=== PATIENT | female | born 1950 | race Caucasian/White ===

== ENCOUNTER 2017-12-08 20:26 | Emergency (ER) | payer MEDICARE, OTHER ==
--- NOTE | 2017-12-08 22:08 | EDM.PDOC ---
ED HPI GENERAL MEDICAL PROBLEM - General Chief Complaint: Upper Extremity Injury/Pain Stated Complaint: LEFT ARM INFECTION Time Seen by Provider: 12/08/17 20:44 Source of Information: Reports: Patient, Family () History Limitations: Reports: No Limitations - History of Present Illness INITIAL COMMENTS - FREE TEXT/NARRATIVE: left arm pain; Mrs. Gregory reports about 2 days ago, noticed an ache in the arm, more in the humerus area, today noticed red streaking going from mid forearm to the AC extending up the Humerus. denies fever and chills. denies any injury or insect or tick bites to the arm. no history of MRSA. 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 Onset: Gradual Onset Date: 12/06/17 Duration: Day(s): (two), Getting Worse Location: Reports: Upper Extremity, Left Quality: Reports: Ache, Pressure Severity: Moderate Improves with: Reports: None Worsens with: Reports: None Associated Symptoms: Denies: Fever/Chills Treatments LAPPER: Reports: Other (see below) Other Treatments LAPPER: none - Related Data Allergies Allergy/AdvReac Type Severity Reaction Status Date / Time amoxicillin [From Augmentin] Allergy Rash Verified 12/08/17 21:06 clavulanic acid Allergy Rash Verified 12/08/17 21:06 [From Augmentin] clindamycin Allergy Rash Verified 12/08/17 21:06 Penicillins Allergy Rash Verified 12/08/17 21:06 procainamide [From Pronestyl] Allergy Rash Verified 12/08/17 21:06 quinidine Allergy Rash Verified 12/08/17 21:06 Sulfa (Sulfonamide Allergy Rash Verified 12/08/17 21:06 Antibiotics) Home Meds: Home Meds Atenolol [Tenormin] 25 mg PO WITHBREAKFAST 12/08/17 [History] Atenolol [Tenormin] 50 mg PO WITHDINNER 12/08/17 [History] Azithromycin [Zithromax] 500 mg PO ASDIRECTED 12/08/17 [History] Calcium Carb & Citrate/Vit D3 [Calcium + D3 ER Tablet] 1 each PO DAILY 12/08/17 [History] Digoxin [Lanoxin] 125 mcg PO ASDIRECTED 12/08/17 [History] Digoxin [Lanoxin] 250 mcg PO ASDIRECTED 12/08/17 [History] Furosemide [Lasix] 40 mg PO DAILY 12/08/17 [History] Multivitamin W-Minerals/Lutein [A Thru Z Advanced Formula Tab] 1 each PO DAILY 12/08/17 [History] Simvastatin [Zocor] 20 mg PO BEDTIME 12/08/17 [History] Warfarin Sodium [Coumadin] 3 mg PO DAILY 12/08/17 [History] Past Medical History HEENT History: Reports: Impaired Vision Cardiovascular History: Reports: Afib, Heart Valve Replacement, Pacemaker, Other (See Below) Other Cardiovascular History: 3rd degree heart block, pacemaker Hematologic History: Reports: Anticoagulation Therapy Oncologic (Cancer) History: Reports: Breast - Infectious Disease History Infectious Disease History: Reports: Chicken Pox - Past Surgical History Cardiovascular Surgical History: Reports: Pacer, Other (See Below) Other Cardiovascular Surgeries/Procedures: St Leonel valve GI Surgical History: Reports: Appendectomy Female Surgical History: Reports: Hysterectomy Oncologic Surgical History: Reports: Mastectomy Social & Family History - Family History Family Medical History: Unobtainable - Tobacco Use Smoking Status *Q: Never Smoker Second Hand Smoke Exposure: No - Caffeine Use Caffeine Use: Reports: Coffee - Recreational Drug Use Recreational Drug Use: No - Living Situation & Occupation Living situation: Reports: 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 Leonel Heart Valves) Musculoskeletal: Reports: Arm Pain (left upper arm and forearm painful x 2 days. ) Skin: Reports: Erythema (follow along veins of left forearm extending into upper arm. warm, red, tender to touch) Neurological: Reports: No Symptoms Psychiatric: Reports: No Symptoms ED EXAM, GENERAL - Physical Exam Exam: See Below Exam Limited By: No Limitations General Appearance: Alert, WD/WN, No Apparent Distress Head: Atraumatic, Normocephalic Neck: Normal Inspection, Supple, Non-Tender, Full Range of Motion Respiratory/Chest: No Respiratory Distress, Lungs Clear, Normal Breath Sounds, No Accessory Muscle Use, Chest Non-Tender Cardiovascular: Normal Peripheral Pulses, Regular Rate, Rhythm, No Edema, No Gallop Peripheral Pulses: 2+: Radial (L), Radial (R) GI/Abdominal: Soft, Non-Tender Extremities: Normal Range of Motion, Arm Pain (left upper arm and forearm), Increased Warmth (increase redness and pain to left forearm and humerus), Redness (left forearm and upper arm) Neurological: No Motor/Sensory Deficits Psychiatric: Normal Affect Skin Exam: Warm, Dry, Intact, Erythema (left forearm and upper arm. red streaking along veins into AC, + pain, redness) Lymphatic: No Adenopathy Course - Vital Signs Last Recorded V/S: Last Vital Signs Temp 35.4 C 12/08/17 20:44 Pulse 65 12/08/17 21:42 Resp 16 12/08/17 21:09 BP 149/83 H 12/08/17 21:42 Pulse Ox 91 L 12/08/17 21:42 - Orders/Labs/Meds Labs: Laboratory Tests 12/08/17 12/08/17 Range/Units 21:16 21:16 WBC 5.7 (4.5-11.0) K/uL RBC 4.77 (3.30-5.50) M/uL Hgb 14.2 (12.0-15.0) g/dL Hct 42.4 (36.0-48.0) % MCV 89 (80-98) fL MCH 30 (27-31) pg MCHC 34 (32-36) % Plt Count 197 (150-400) K/uL Neut % (Auto) 60 (36-66) % Lymph % (Auto) 26 (24-44) % Addison % (Auto) 10 H (2-6) % Eos % (Auto) 3 (2-4) % Baso % (Auto) 1 (0-1) % Sodium 140 (140-148) mmol/L Potassium 3.8 (3.6-5.2) mmol/L Chloride 103 (100-108) mmol/L Carbon Dioxide 31 (21-32) mmol/L Anion Gap 5.8 (5.0-14.0) mmol/L BUN 20 H (7-18) mg/dL Creatinine 1.2 H (0.6-1.0) mg/dL Est Cr Clr Drug Dosing 48.19 mL/min Estimated GFR (MDRD) 45 L (>60) Glucose 116 H (74-106) mg/dL Calcium 9.1 (8.5-10.1) mg/dL - Re-Assessments/Exams Free Text/Narrative Re-Assessment/Exam: labs: CBC normal, BMP normal Na+, K+, CL-, BUN, anion gap., elevated CR 1.2, consulted with Tele-pharmacy for antibiotic and Coumadin interaction will use Zithromax for cellulitis. advised if not improving in the next 24 hours will need to return to ER for recheck. and Mrs. Gregory agree with plan of care Departure - Departure Time of Disposition: 22:31 Disposition: Home, Self-Care 01 Condition: Good Clinical Impression: Cellulitis and abscess of upper arm and forearm - Discharge Information *PRESCRIPTION DRUG MONITORING PROGRAM REVIEWED*: Not Applicable *COPY OF PRESCRIPTION DRUG MONITORING REPORT IN PATIENT YAS: Not Applicable Instructions: Cellulitis, Adult, [id number] Referrals: PCP,None [Primary Care Provider] - Forms: ED Department Discharge Care Plan Goals: Cellulitis of left upper arm and forearm -start tonight, Zithromax 2 tabs now, then one tablet daily -take over the counter Tylenol as directed for pain -may apply warm moist heat to the area of redness for 20 mins every 2 to 4 hours while awake for next 3 days -will need to recheck INR level in 3 days -follow up with Primary Care in 3 days for recheck Advise to return to ER if has any increase pain, fever, chills, nausea, vomiting , rash, increased in redness or not improved - Problem List & Annotations (1) Cellulitis and abscess of upper arm and forearm SNOMED Code(s): 830952726 Code(s): WCO7025 - Status: Acute Priority: High - Problem List Review Problem List Initiated/Reviewed/Updated: Yes - Assessment/Plan Assessment:: Cellulitis of left upper arm and forearm -start tonight, Zithromax 2 tabs now, then one tablet daily -take over the counter Tylenol as directed for pain -may apply warm moist heat to the area of redness for 20 mins every 2 to 4 hours while awake for next 3 days -will need to recheck INR level in 3 days -follow up with Primary Care in 3 days for recheck -copy of labs given to Mrs. Gregory for home records. Advise to return to ER if has any increase pain, fever, chills, nausea, vomiting , rash, increased in redness or not improved
== END 2017-12-08 22:31 | disposition home or self-care (01) ==
LOC: JP.ED 20:26
DX: L03.114 Cellulitis of left upper limb (principal); L02.414 Cutaneous abscess of left upper limb; I48.91 Unspecified atrial fibrillation; Z88.1 Allergy status to other antibiotic agents; Z88.8 Allergy status to other drugs, medicaments and biological substances; Z79.899 Other long term (current) drug therapy; Z79.01 Long term (current) use of anticoagulants
CPT/HCPCS: 36415; 80048; 85025; 99284